=== PATIENT | male | born 1965 | race Caucasian/White ===

== ENCOUNTER 2020-08-12 18:15 | Inpatient (IN) | payer MEDICAID ==
[~2020-08-12] VITALS: Ht 172.7 cm; Wt 86.3 kg
[2020-08-12] MEDS ORDERED: LORazepam 2 MG/ML, 1ML ONE (19:42)
[2020-08-12 19:58] LABS: BASOPHILS % (AUTO) 1 % (0-1); EOSINOPHILS % (AUTO) 2 % (1-7); LYMPHOCYTES % (AUTO) 30 % (22-44); MEAN CORPUSCULAR HEMOGLOBIN 33.1 pg (27.5-34.5); MEAN CORPUSCULAR HGB CONC 33.8 g/dL (33.2-36.2); MEAN PLATELET VOLUME 9.7 fL (7.4-10.4); MONOCYTES % (AUTO) 10 % (2-9); NEUTROPHILS % (AUTO) 57 % (42-75); PLATELET COUNT 178 x10^3/uL (130-400); RED BLOOD COUNT 4.26 x10^6/uL (4.38-5.82); RED CELL DISTRIBUTION WIDTH 17.1 % (9.4-14.8)
[2020-08-12 20:00] LABS: MD NO
[2020-08-12] MEDS ORDERED: LORazepam 2 MG/ML, 1ML IVPush ONE (20:00)
[2020-08-12] MEDS ORDERED: SODIUM CHLORIDE FLUSH 10ML SYR IVF ONE (20:00)
[2020-08-12] MEDS ORDERED: SODIUM CHLORIDE 0.9% 1,000ML IVBOLUS ONE (20:00)
[2020-08-12 20:07] LABS: ALANINE AMINOTRANSFERASE 130 U/L (12-78); ALBUMIN 2.4 g/dL (3.4-5.0); ANION GAP 5 mmol/L (5-15); CALCIUM 7.9 mg/dL (8.5-10.1); CHLORIDE 111 mmol/L (98-107); CREATININE 1.24 mg/dL (0.7-1.3)
[2020-08-12 20:09] LABS: ALKALINE PHOSPHATASE 166 U/L (45-117); BILIRUBIN,TOTAL 2.2 mg/dL (0.2-1.0); TOTAL PROTEIN 6.8 g/dL (6.4-8.2)
[2020-08-12] MEDS ORDERED: SODIUM CHLORIDE 0.9% 1,000 ML IV STA (21:24)
[2020-08-12] MEDS ORDERED: CEFTRIAXONE PMX 1GM/50ML 50 ML ONE (21:28)
[2020-08-12] MEDS ORDERED: CEFTRIAXONE PMX 1GM/50ML 50 ML IV ONE (21:30)
[2020-08-12 21:50] LABS: MICROSCOPIC INDICATED
[2020-08-12] MEDS ORDERED: SODIUM CHLORIDE 0.9% 1,000 ML IV ONE (22:00)
[2020-08-12] MEDS ORDERED: AMLODIPINE PO (22:02)
[2020-08-12] MEDS ORDERED: BUPROPION PO (22:04)
[2020-08-12] MEDS ORDERED: THIA100T27 PO (22:59)
[2020-08-12] MEDS ORDERED: ERGO400T3 PO (23:01)
[2020-08-12] MEDS ORDERED: FOLI1TAB32 PO (23:02)
[2020-08-12 23:03] VITALS: BP 107/64
[2020-08-12] MEDS ORDERED: THIAMINE 100MG TABLET PO ONE (23:45)
[2020-08-13] MEDS ORDERED: DOCUSATE 100 MG CAPSULE PO PRN
[2020-08-13] MEDS ORDERED: ACETAMINOPHEN 325 MG TABLET PO PRN
[2020-08-13] MEDS ORDERED: THIAMINE 200 MG in SODIUM CHLORIDE 0.9% 50 ML IV ONE
[2020-08-13] MEDS ORDERED: NICOTINE 21 MG/24 HR PATCH.TD24 TD SCH
[2020-08-13] MEDS ORDERED: LABETALOL 5MG/ML, 20ML IVPush PRN
[2020-08-13] MEDS ORDERED: FOLIC ACID 1 MG TABLET PO ONE
[2020-08-13] MEDS ORDERED: LORazepam 2 MG/ML, 1ML IV PRN ×4
[2020-08-13] MEDS ORDERED: ONDANSETRON 2MG/ML, 2ML IVPush PRN
[2020-08-13 00:21] VITALS: BP 107/64
[2020-08-13 01:30] LABS: INTERNATIONAL NORMALIZED RATIO 1.02 (0.93-1.1); PROTHROMBIN TIME 10.9 Seconds (9.6-11.5)
[2020-08-13 03:51] LABS: BASOPHILS % (AUTO) 3 % (0-1); EOSINOPHILS % (AUTO) 2 % (1-7); LYMPHOCYTES % (AUTO) 37 % (22-44); MEAN CORPUSCULAR HGB CONC 33.5 g/dL (33.2-36.2); MEAN PLATELET VOLUME 10.5 fL (7.4-10.4); MONOCYTES % (AUTO) 10 % (2-9); NEUTROPHILS % (AUTO) 48 % (42-75); PLATELET COUNT 131 x10^3/uL (130-400); RED BLOOD COUNT 3.94 x10^6/uL (4.38-5.82); RED CELL DISTRIBUTION WIDTH 16.7 % (9.4-14.8)
[2020-08-13 03:52] LABS: MD NO
[2020-08-13 03:54] LABS: ALANINE AMINOTRANSFERASE 114 U/L (12-78); ALBUMIN 2.2 g/dL (3.4-5.0); ANION GAP 8 mmol/L (5-15); CALCIUM 7.7 mg/dL (8.5-10.1); CHLORIDE 112 mmol/L (98-107); CHOLESTEROL, TOTAL 192 mg/dL (140-239); CREATININE 1.04 mg/dL (0.7-1.3)
[2020-08-13 03:56] LABS: ALKALINE PHOSPHATASE 150 U/L (45-117); BILIRUBIN,TOTAL 1.9 mg/dL (0.2-1.0); HDL CHOL % 8 % (26-37); HDL CHOLESTEROL (DIRECT) 16 mg/dL (40-60); LDL CHOLESTEROL,CALCULATED 145 mg/dL (54-169); LDL/HDL RATIO 9.1 (0.5-3.0); TOTAL PROTEIN 6.4 g/dL (6.4-8.2); TRIGLYCERIDES 157 mg/dL (50-200); VLDL CHOLESTEROL 31 mg/dL (0-25)
[2020-08-13] MEDS ORDERED: OMNIPAQUE 350 MG/ML, 150 ML BOTTLE ONE (07:36)
[2020-08-13 08:03] VITALS: BP 139/87
[2020-08-13] MEDS: THIAMINE 100MG TABLET PO SCH (08:56)
[2020-08-13] MEDS: MULTIVITAMINS/MINERALS TABLET PO SCH (08:57)
[2020-08-13] MEDS ORDERED: THIAMINE 100 MG in DEXTROSE 5% 50 ML IVPB SCH (09:00)
[2020-08-13 13:02] VITALS: BP 152/90
[2020-08-13] MEDS: NICOTINE 21 MG/24 HR PATCH.TD24 TD SCH (14:56)
[2020-08-13 18:45] VITALS: BP 142/78
[2020-08-13] MEDS: MELATONIN 5 MG TABLET PO PRN (21:04)
[2020-08-13] MEDS: LORazepam 2 MG/ML, 1ML IV PRN (21:04)
[2020-08-14 01:31] VITALS: BP 148/80
[2020-08-14 07:32] VITALS: BP 139/91
[2020-08-14] MEDS: THIAMINE 100MG TABLET PO SCH (08:07)
[2020-08-14] MEDS: MULTIVITAMINS/MINERALS TABLET PO SCH (08:07)
[2020-08-14] MEDS: LORazepam 2 MG/ML, 1ML IV PRN ×3 (12:32→22:23)
[2020-08-14 13:28] VITALS: BP 111/72
[2020-08-14] MEDS: NICOTINE 21 MG/24 HR PATCH.TD24 TD SCH (14:47)
[2020-08-14 19:07] VITALS: BP 145/90
[2020-08-14] MEDS: MELATONIN 5 MG TABLET PO PRN (22:23)
[2020-08-15 01:15] VITALS: BP 126/86
[2020-08-15 07:33] LABS: BASOPHILS % (AUTO) 1 % (0-1); EOSINOPHILS % (AUTO) 4 % (1-7); LYMPHOCYTES % (AUTO) 28 % (22-44); MEAN CORPUSCULAR HEMOGLOBIN 32.6 pg (27.5-34.5); MEAN CORPUSCULAR HGB CONC 33.2 g/dL (33.2-36.2); MEAN PLATELET VOLUME 9.6 fL (7.4-10.4); MONOCYTES % (AUTO) 11 % (2-9); NEUTROPHILS % (AUTO) 56 % (42-75); PLATELET COUNT 139 x10^3/uL (130-400); RED BLOOD COUNT 4.36 x10^6/uL (4.38-5.82); RED CELL DISTRIBUTION WIDTH 16.1 % (9.4-14.8)
[2020-08-15 07:35] LABS: MD NO
[2020-08-15 07:56] LABS: ALANINE AMINOTRANSFERASE 111 U/L (12-78); ALBUMIN 2.7 g/dL (3.4-5.0); ALKALINE PHOSPHATASE 153 U/L (45-117); ANION GAP 3 mmol/L (5-15); BILIRUBIN,TOTAL 2.9 mg/dL (0.2-1.0); CHLORIDE 107 mmol/L (98-107); CREATININE 0.82 mg/dL (0.7-1.3); TOTAL PROTEIN 7.4 g/dL (6.4-8.2)
[2020-08-15] MEDS: THIAMINE 100MG TABLET PO SCH (08:13)
[2020-08-15] MEDS: MULTIVITAMINS/MINERALS TABLET PO SCH (08:13)
[2020-08-15 08:40] VITALS: BP 136/87
[2020-08-15] MEDS ORDERED: MAGN400T26 PO (11:39)
== END 2020-08-15 13:13 | disposition home or self-care (01) | DRG 433 ==
LOC: ED 22:39 → INTOOBSV 22:40 → EDIP 22:40 → 3N 23:41 → OBSVTOIN 08-13 09:18 → DCLOUNGE 08-15 13:08
PROVIDERS: ADMIT Family Medicine; ATTEND Internal Medicine
DX: K70.30 Alcoholic cirrhosis of liver without ascites (principal); K76.6 Portal hypertension; K80.21 Calculus of gallbladder without cholecystitis with obstruction; F10.239 Alcohol dependence with withdrawal, unspecified; C64.1 Malignant neoplasm of right kidney, except renal pelvis; N28.9 Disorder of kidney and ureter, unspecified; D70.9 Neutropenia, unspecified; F17.210 Nicotine dependence, cigarettes, uncomplicated; F32.9 Major depressive disorder, single episode, unspecified; I10 Essential (primary) hypertension; J41.0 Simple chronic bronchitis; K70.10 Alcoholic hepatitis without ascites; Z79.899 Other long term (current) drug therapy; Z79.891 Long term (current) use of opiate analgesic; Z79.01 Long term (current) use of anticoagulants
CPT/HCPCS: 36415; 70450; 74178; 74181; 76700; 80053; 80061; 80074; 81001; 82140; 82607; 83690; 83735; 84132; 84443; 85025; 85610; 96361; 96365; G0378; J0696; Q9967; J2060; J7030